=== PATIENT | female | born 1945 | race Caucasian/White ===

== ENCOUNTER → 2017-03-07 | Outpatient (CLI) | payer MEDICARE, BC ==
[~2017-03-07] MED LIST: ACETAMINOPHEN325 MG PO; ALBUTEROL17 GM INH; CLARITIN10 M2 PO; COLACE PO; HUMIBID DM1 TAB PO; HYDROCHLOROTHIA25 MG PO; HYDROCODON-ACE1 EAC9 PO; LASIX PO; LEVAQUIN PO; LISINOPRIL20 MG PO; LORTAB 10-3251 EACH PO; LORTAB 7.51 TAB DOB; OXYGEN; PREDNISONE PO; PROAIR HFA8.5 GM INH; SPIRIVA18 MCG INH; SYMBICORT 160/4.6 GM INH; SYMBICORT INH; TYLENOL325 M1 PO; VIBRAMYCIN100 M1 DOB; ZESTRIL40 MG PO
--- NOTE | ~2017-03-07 | CT4 ---
[facility] A Service of [facility] RADIOLOGY TEXT RESULTS PATIENT: MATEO BRENNER LOCATION: [facility] : 47 UNIT #: [id number] AGE: [address]: Ema Daugherty MD SEX: F ORDER DR: [id number] [facility] [address] [place], [place] [address] [id number] O MR#: [id number] Acc #: [id number] NAME: MATEO BRENNER : 1945 SEX: F STUDY DATE/TIME: 03/07/2017 15:05 UNIT: [facility] ROOM: STUDY DESCRIPTION: CT Abd and Pelv Wo Cont Attending Physician: Ema Daugherty M.D. Referring Physician: Ema Daugherty M.D. Ordering Physician: Ema Daugherty M.D. Primary Care Physician: Flakita John A.P.R.N. MEDICAL IMAGING REPORT This report is preliminary unless electronic signature is present EXAM CT abdomen and pelvis without contrast INDICATION Restaging lung cancer. Observation for metastatic disease. PROCEDURE Unenhanced CT of the abdomen and pelvis. COMPARISON 12/16/2016. TECHNIQUE This CT examination was performed with one or more of the following radiation dose reduction techniques: automatic exposure control, adjustment of mA and/or kV according to patient size, and iterative reconstruction. FINDINGS Refer to the separately dictated chest CT for thoracic findings. ABDOMEN WITHOUT CONTRAST: Liver, spleen, adrenal glands, pancreas, gallbladder have an unremarkable unenhanced appearance. Bilateral nonobstructing renal calculi measuring up to 4 mm in the right kidney. The bowel loops are nondilated. Moderate colonic stool. Uncomplicated colonic diverticula. Appendix is normal. PELVIS WITHOUT CONTRAST: No pelvic mass or fluid. No aggressive appearing bone lesion. IMPRESSION No evidence for metastatic disease in the abdomen or pelvis. [facility] A Service of [facility] RADIOLOGY TEXT RESULTS PATIENT: MATEO BRENNER LOCATION: [facility] : 47 UNIT #: [id number] AGE: [address]: Ema Daugherty MD SEX: F ORDER DR: Dictated by... Forest Busch M.D. THIS IS AN ELECTRONICALLY VERIFIED REPORT Forest Busch M.D. at 03/09/2017 7:19 AM MANDA/yasmani TD: 03/08/2017 08:13 JOB #: [id number] MEDICAL IMAGING REPORT Page 1 of 1 COPY
--- NOTE | ~2017-03-07 | MR17 ---
[facility] A Service of [facility] & [facility] RADIOLOGY TEXT RESULTS PATIENT: MATEO BRENNER LOCATION: [facility] : 47 UNIT #: [id number] AGE: [address]: Ema Daugherty MD SEX: F ORDER DR: [id number] [facility] [address] [place], [place] [address] [id number] O MR#: [id number] Acc #: [id number] NAME: MATEO BRENNER : 1945 SEX: F STUDY DATE/TIME: 03/07/2017 13:42 UNIT: [facility] ROOM: STUDY DESCRIPTION: MR Brain WWo Contrast Attending Physician: Ema Daugherty M.D. Referring Physician: Ema Daugherty M.D. Ordering Physician: Ema Daugherty M.D. Primary Care Physician: Flakita John A.P.R.N. MRI CENTER REPORT This report is preliminary unless electronic signature is present. EXAM MRI of the brain with without HISTORY Lung cancer. Observe for suspected intracranial metastatic disease. Follow-up. The patient has occasional headaches and has had lung and brain cancer per patient with chemotherapy in 2013 and radiation therapy in 2014, brain tumor removal in 2014. COMMENT MRI of the brain was performed prior to and following intravenous administration of 15 mL of MultiHance. COMPARISON Comparison study is from 12/16/2016. FINDINGS There is no abnormally restricted diffusion. Redemonstrated are postoperative changes left parietooccipital lobe with underlying encephalomalacia and apparent gliosis. White matter signal abnormality is stable subjacent to the craniotomy site and there is no pathologic enhancement. There is nothing to suggest local recurrence. There is no extraaxial fluid collection. The major intracranial flow voids are maintained. There is prominence of perivascular spaces and moderate white matter disease in general, nonspecific and probably due to small vessel disease. The focal white matter disease at the postoperative bed is likely post-therapeutic in etiology. Minor fluid or inflammatory change mastoid air cells. Minor mucosal thickening paranasal sinuses but no sinus air-fluid level. There is mild generalized atrophy. No recent intracranial hemorrhage is suspected. Postcontrast imaging shows no evidence for intracranial metastatic STS. [facility] A Service of [facility] & [facility] RADIOLOGY TEXT RESULTS PATIENT: MATEO BRENNER LOCATION: [facility] : 47 UNIT #: [id number] AGE: [address]: Ema Daugherty MD SEX: F ORDER DR: disease. Continued interval follow up is suggested. IMPRESSION 1. Stable postoperative/posttherapeutic appearance of the brain. Nothing to suggest tumor recurrence. No evidence for intracranial metastatic disease at this time. Continued interval follow up is recommended. 2. Otherwise, atrophy and probable sequelae of small vessel disease. Dictated by... Amanda Snowden M.D. THIS IS AN ELECTRONICALLY VERIFIED REPORT Amanda Snowden M.D. at 03/08/2017 6:20 PM PADMINI/landy TD: 03/08/2017 11:19 JOB #: [id number] MRI CENTER REPORT Page 1 of 1 COPY
--- NOTE | ~2017-03-07 | CT57 ---
[facility] A Service of [facility] RADIOLOGY TEXT RESULTS PATIENT: MATEO BRENNER LOCATION: [facility] : 47 UNIT #: [id number] AGE: [address]: Ema Daugherty MD SEX: F ORDER DR: [id number] [facility] [address] [place], [place] [address] [id number] O MR#: [id number] Acc #: [id number] NAME: MATEO BRENNER : 1945 SEX: F STUDY DATE/TIME: 03/07/2017 15:05 UNIT: [facility] ROOM: STUDY DESCRIPTION: CT Chest Wo Cont Attending Physician: Ema Daugherty M.D. Referring Physician: Ema Daugherty M.D. Ordering Physician: Ema Daugherty M.D. Primary Care Physician: Flakita John A.P.R.N. MEDICAL IMAGING REPORT This report is preliminary unless electronic signature is present EXAM CT chest without contrast INDICATIONS Lung cancer restaging. Observation for metastatic disease. PROCEDURE Unenhanced CT of the chest COMPARISON 12/16/2016 FINDINGS Emphysema. There is scarring in the right upper lobe that is stable. No new nodule. No adenopathy. Low-attenuation nodules in the right thyroid lobe are similar to the prior. No acute findings in the included upper abdomen. No aggressive appearing bone lesion. IMPRESSION 1. Stable scarring in the right upper lobe. Emphysema. 2. No new pulmonary nodule or convincing evidence for metastatic disease in the chest. Dictated by... Forest Busch M.D. THIS IS AN ELECTRONICALLY VERIFIED REPORT Forest Busch M.D. at 03/09/2017 7:19 AM EED/naina TD: 03/08/2017 08:05 [facility] A Service [facility] RADIOLOGY TEXT RESULTS PATIENT: MATEO BRENNER LOCATION: [facility] : 47 UNIT #: [id number] AGE: [address]: Ema Daugherty MD SEX: F ORDER DR: JOB #: [id number] MEDICAL IMAGING REPORT Page 1 of 1 COPY
[2017-03-07 13:50] LABS: POC - CREATININE 1.1 mg/dL (0.44-1.03)
== END | disposition home or self-care (01) ==
LOC: CMRI 13:16
PROVIDERS: Internal Medicine Hematology
DX: C34.90 Malignant neoplasm of unspecified part of unspecified bronchus or lung (principal); G31.9 Degenerative disease of nervous system, unspecified; J98.4 Other disorders of lung; J43.9 Emphysema, unspecified; Z98.890 Other specified postprocedural states
CPT/HCPCS: 70553; 71250; 74176; 82565; A9577

== ENCOUNTER → 2017-04-29 | Outpatient (CLI) | payer MEDICARE, BC ==
--- NOTE | ~2017-04-29 | CT55 ---
[facility] A Service of [facility] & [facility] RADIOLOGY TEXT RESULTS PATIENT: MATEO BRENNER [facility] : 47 UNIT #: [id number] AGE: [address]: Ema Daugherty MD SEX: F ORDER DR: [id number] [facility] [address] [place], [place] [address] [id number] O MR#: [id number] Acc #: [id number] NAME: MATEO BRENNER : 1945 SEX: F STUDY DATE/TIME: 04/29/2017 16:06 UNIT: [facility] ROOM: STUDY DESCRIPTION: CT Chest W Con Attending Physician: Ema Daugherty M.D. Referring Physician: Ema Daugherty M.D. Ordering Physician: Ema Daugherty M.D. Primary Care Physician: Flakita John A.P.R.N. MEDICAL IMAGING REPORT This report is preliminary unless electronic signature is present EXAM CT scan of the chest with contrast. INDICATION Follow up lung cancer. COMPARISON 03/07/17. TECHNIQUE Axial 5 mm images were obtained through the chest with IV contrast. The patient was given 100 mL of Isovue-370. This CT exam was performed with one or more of the following radiation dose reduction techniques: automatic exposure control, adjustment of mA and/or kV according to patient size, and iterative reconstruction. FINDINGS There is a low density nodule in the right thyroid lobe measuring 14 mm in diameter. This appears to have been present on the prior study and some of the thyroid tissue from the right lobe extends down into the right paratracheal region which is also stable. The aorta is normal in size and there is no dissection. There is no visualized pulmonary embolus. I believe there are postoperative changes in the right upper lobe, and there is no significant change in the right lung with minimal right base atelectasis, is new from the prior study. This is in the lateral basilar segment. This could also represent some minimal infiltrate. There is no adenopathy identified. IMPRESSION 1. There is some new density in the right base laterally measuring up to about 3 cm x 1 cm and the appearance suggests infiltrate or atelectasis. [facility] A Service of [facility] & [facility] RADIOLOGY TEXT RESULTS PATIENT: MATEO BRENNER LOCATION: [facility] : 47 UNIT #: [id number] AGE: [address]: Ema Daugherty MD SEX: F ORDER DR: 2. There is no evidence of metastatic disease or recurrent lung cancer. Dictated by... Darek Hudson M.D. THIS IS AN ELECTRONICALLY VERIFIED REPORT Darek Hudson M.D. at 05/01/2017 7:02 AM ALEX/sebastian TD: 04/30/2017 18:44 JOB #: [id number] MEDICAL IMAGING REPORT Page 1 of 1 COPY
--- NOTE | ~2017-04-29 | MR17 ---
[facility] A Service of [facility] RADIOLOGY TEXT RESULTS PATIENT: MATEO BRENNER LOCATION: [facility] : 47 UNIT #: [id number] AGE: [address]: Ema Daugherty MD SEX: F ORDER DR: [id number] [facility] [address] [place], [place] [address] [id number] O MR#: [id number] Acc #: [id number] NAME: MATEO BRENNER. : 1945 SEX: F STUDY DATE/TIME: 04/29/2017 14:50 UNIT: [facility] ROOM: STUDY DESCRIPTION: MR Brain WWo Contrast Attending Physician: Ema Daugherty M.D. Referring Physician: Ema Daugherty M.D. Ordering Physician: Ema Daugherty M.D. Primary Care Physician: Flakita John A.P.R.N. MRI CENTER REPORT This report is preliminary unless electronic signature is present. EXAM MRI brain with without HISTORY Lung cancer followup. Known metastatic disease to the brain. Right upper chest and head pain for [id number] weeks. History of prior brain surgery. History of chemo and radiation therapy 2013 and 2014 respectively. COMMENTS MRI of the brain was performed prior to and following intravenous administration of 15 mL of MultiHance. There is a comparison study from 03/07/2017. There is no abnormally restricted diffusion. There is a stable focus of encephalomalacia in the left parietooccipital lobe consistent with prior therapy. There is nothing at this time to suggest tumor recurrence. The major intracranial flow voids are maintained. There is no extraaxial fluid collection. There is confluent white matter signal abnormality at site of prior treated tumor. Otherwise there is moderate nonspecific white matter disease in general which is probably due to small vessel disease in age group. This is unchanged. Postcontrast imaging shows no pathologic intracranial enhancement. There is nothing to suggest intracranial metastatic disease. Continued interval followup is recommended. Mastoid air cells are clear. Partial opacification/mild mucosal thickening ethmoid air cells and a small amount of disease in the right frontal sinus but there is no sinus air-fluid level. Prominence of perivascular space is also noted. IMPRESSION 1. Stable postoperative and post-therapeutic appearance of the brain. Nothing at this time to suggest tumor recurrence. No evidence for intracranial metastatic disease. Continued interval follow up is STS. [facility] A Service of [facility] & [facility] RADIOLOGY TEXT RESULTS PATIENT: MATEO BRENNER LOCATION: [facility] : 47 UNIT #: [id number] AGE: [address]: Ema Daugherty MD SEX: F ORDER DR: recommended. 2. Probably sequela of small vessel disease. Dictated by... Amanda Snowden M.D. THIS IS AN ELECTRONICALLY VERIFIED REPORT Amanda Snowden M.D. at 05/03/2017 3:43 PM PADMINI/marcelo TD: 05/03/2017 12:37 JOB #: [id number] MRI CENTER REPORT Page 1 of 1 COPY
--- NOTE | ~2017-04-29 | CT2 ---
[facility] A Service of [facility] RADIOLOGY TEXT RESULTS PATIENT: MATEO BRENNER LOCATION: [facility] : 47 UNIT #: [id number] AGE: [address]: Ema Daugherty MD SEX: F ORDER DR: [id number] [facility] [address] [place], [place] [address] [id number] O MR#: [id number] Acc #: [id number] NAME: MATEO BRENNER : 1945 SEX: F STUDY DATE/TIME: 04/29/2017 15:40 UNIT: [facility] ROOM: STUDY DESCRIPTION: CT Abd and Pelv W Cont Attending Physician: Ema Daugherty M.D. Referring Physician: Ema Daugherty M.D. Ordering Physician: Ema Daugherty M.D. Primary Care Physician: Flakita John A.P.R.N. MEDICAL IMAGING REPORT This report is preliminary unless electronic signature is present EXAM CT abdomen and pelvis with contrast. INDICATION Lung cancer follow up. Patient has brain mets and right breast pain, low back pain, headache for 2 weeks. COMPARISON 03/07/17. TECHNIQUE The patient was given 100 mL Isovue-370 and axial 5 mm images were obtained through the abdomen and pelvis. This CT exam was performed with one or more of the following radiation dose reduction techniques: automatic exposure control, adjustment of mA and/or kV according to patient size, and iterative reconstruction. FINDINGS Lung base findings will be discussed with the chest CT. The liver, gallbladder, spleen, pancreas, adrenal glands, and kidneys are normal. The aorta is normal in size and there is no adenopathy. The bowel is normal. The uterus and adnexal regions and bladder are normal. The bones are unremarkable. IMPRESSION Negative CT abdomen and pelvis. No evidence of metastatic disease. Dictated by... Darek Hudson M.D. [facility] A Service of [facility] RADIOLOGY TEXT RESULTS PATIENT: MATEO BRENNER LOCATION: [facility] : 47 UNIT #: [id number] AGE: [address]: Ema Daugherty MD SEX: F ORDER DR: THIS IS AN ELECTRONICALLY VERIFIED REPORT Darek Hudson M.D. at 05/01/2017 7:02 AM ALEX/sebastian TD: 04/30/2017 18:26 JOB #: [id number] MEDICAL IMAGING REPORT Page 1 of 1 COPY
[2017-04-29 17:27] LABS: POC - CREATININE 0.91 mg/dL (0.44-1.03); POC - GFR >60.0 mL/min (>60)
== END | disposition home or self-care (01) ==
LOC: CMRI 14:00
PROVIDERS: Internal Medicine Hematology
DX: C34.90 Malignant neoplasm of unspecified part of unspecified bronchus or lung (principal); J98.4 Other disorders of lung
CPT/HCPCS: 70553; 71260; 74177; 82565; A9577; Q9967

== ENCOUNTER → 2017-05-17 | Outpatient (CLI) | payer MEDICARE, BC ==
--- NOTE | ~2017-05-17 | MY29 ---
[facility] A Service of [facility] RADIOLOGY TEXT RESULTS PATIENT: MATEO BRENNER LOCATION: [facility] #: [id number] : 47 UNIT #: [id number] AGE: [address]: Ema Daugherty MD SEX: F ORDER DR: [id number] [facility] [address] [place], [place] [address] [id number] O MR#: [id number] Acc #: [id number] NAME: MATEO BRENNER : 1945 SEX: F STUDY DATE/TIME: 05/17/2017 15:06 UNIT: [facility] ROOM: STUDY DESCRIPTION: MY THOMAS SCREENING W/ CAD BILAT Attending Physician: Ema Daugherty M.D. Ordering Physician: Ema Daugherty M.D. Primary Care Physician: Flakita John A.P.R.N. MEDICAL IMAGING REPORT This report is preliminary unless electronic signature is present EXAM Digital screening mammogram, 05/17/17; [facility]. HISTORY 71-year-old woman, no risk elevation. New baseline mammogram. COMPARISON None. Previous mammogram 20 years ago. FINDINGS Digital imaging of each breast was completed utilizing a two-view examination of each breast in craniocaudal and mediolateral-oblique projections. Review and interpretation of digital mammograms include a second review in conjunction with FDA-approved CAD device. There is a normal parenchymal presentation bilaterally consistent with the patient's age. There are no breast masses imaged and no parenchymal asymmetry is visualized. There are no suspicious microcalcifications and I see no focal architectural disturbance. IMPRESSION Negative screening digital mammogram. One-year followup recommended. Patients over the age of 40 are entered into a reminder system with target due date for the next mammogram. A result letter will also be sent to the patient. BIRADS: 1 Negative. Dictated by... Jimy Bernabe M.D. [facility] A Service of [facility] RADIOLOGY TEXT RESULTS PATIENT: MATEO BRENNER [facility] [id number] : 49 UNIT #: [id number] AGE: [address]: Ema Daugherty MD SEX: F ORDER DR: THIS IS AN ELECTRONICALLY VERIFIED REPORT Jimy Bernabe M.D. at 05/18/2017 9:39 AM KARINA/sebastian TD: 05/17/2017 19:28 JOB #: [id number] MEDICAL IMAGING REPORT Page 1 of 1 COPY
== END | disposition home or self-care (01) ==
LOC: CWCC 14:30
DX: Z12.31 Encounter for screening mammogram for malignant neoplasm of breast (principal); C34.90 Malignant neoplasm of unspecified part of unspecified bronchus or lung
CPT/HCPCS: G0202

== ENCOUNTER → 2017-08-02 | Outpatient (CLI) | payer MEDICARE, BC ==
--- NOTE | ~2017-08-02 | MR17 ---
[facility] A Service of [facility] RADIOLOGY TEXT RESULTS PATIENT: MATEO BRENNER [facility] UNIT #: [id number] AGE: [address]: Ema Daugherty MD SEX: F ORDER DR: [id number] [facility] [address] [place], [place] [address] [id number] O MR#: [id number] Acc #: [id number] NAME: MATEO BRENNER : 1945 SEX: F STUDY DATE/TIME: 08/02/2017 13:26 UNIT: [facility] ROOM: STUDY DESCRIPTION: MR Brain WWo Contrast Attending Physician: Ema Daugherty M.D. Ordering Physician: Ema Daugherty M.D. Primary Care Physician: Flakita John A.P.R.N. MRI CENTER REPORT This report is preliminary unless electronic signature is present. EXAM MRI of the brain with and without contrast, 08/02/2017 COMPARISON MRI brain with and without contrast dated 04/29/2017. HISTORY Followup MRI from 3 months ago. No new symptoms. History of lung cancer with metastasis to the brain. FINDINGS Multisequence multiplanar imaging of the brain was obtained with and without contrast. 15 mL of MultiHance was administered intravenously. GFR measured 50. Status post left parietooccipital craniotomy with underlying postoperative changes, stable when compared to the prior study. Increased T2 signal is noted in the left parietal lobe extending towards the occipital lobe. It is probably vasogenic edema which has not significantly changed. Nonenhancing few other scattered hyperintense T2-signal lesions are noted in the subcortical and periventricular white matter. No hydrocephalus, midline shift or new enhancing lesions. Mild bilateral mastoid and paranasal sinus mucosal thickening is noted with S-shaped nasal septal deviation. IMPRESSION 1. No significant interval change. Stable postoperative changes in the left parietal region. 2. No interval new enhancing mass. 3. Nonspecific nonenhancing increased T2 signal changes in the remaining brain are likely related to mild chronic microvascular ischemic change or migraine based on age and statistics. Stable. STS. [facility] A Service of [facility] & [facility] RADIOLOGY TEXT RESULTS PATIENT: MATEO BRENNER LOCATION: [facility] : 49 UNIT #: [id number] AGE: [address]: Ema Daugherty MD SEX: F ORDER DR: Dictated by... Jovany Peace M.D. THIS IS AN ELECTRONICALLY VERIFIED REPORT Jovany Peace M.D. at 08/04/2017 6:37 PM CPR/ljd TD: 08/03/2017 22:57 JOB #: [id number] MRI CENTER REPORT Page 1 of 1 COPY
[2017-08-02 18:06] LABS: POC - CREATININE 1.14 mg/dL (0.44-1.03)
== END | disposition home or self-care (01) ==
LOC: CCAT 13:00
PROVIDERS: Internal Medicine Hematology
DX: C34.90 Malignant neoplasm of unspecified part of unspecified bronchus or lung (principal); R93.0 Abnormal findings on diagnostic imaging of skull and head, not elsewhere classified; Z98.890 Other specified postprocedural states
CPT/HCPCS: 70553; 82565; A9577

== ENCOUNTER → 2017-08-03 | Outpatient (CLI) | payer MEDICARE, BC ==
--- NOTE | ~2017-08-03 | CT2 ---
[facility] A Service of [facility] & [facility] RADIOLOGY TEXT RESULTS PATIENT: MATEO BRENNER [facility] UNIT #: [id number] AGE: [address]: Ema Daugherty MD SEX: F ORDER DR: [id number] [facility] [address] [place] [address] [place], [place] [address] [id number] O MR#: [id number] Acc #: [id number] NAME: MATEO BRENNER : 1945 SEX: F STUDY DATE/TIME: 08/03/2017 13:23 UNIT: [facility] ROOM: STUDY DESCRIPTION: CT Abd and Pelv W Cont Attending Physician: Ema Daugherty M.D. Ordering Physician: Ema Daugherty M.D. MEDICAL IMAGING REPORT This report is preliminary unless electronic signature is present EXAM CT abdomen and pelvis with contrast DATE 08/03/2017 HISTORY 71-year-old female lung cancer follow up. No current complaints. History of lung cancer diagnosed in 2012 and brain cancer in 2014. COMPARISON CT abdomen and pelvis with contrast 04/29/2017. PROCEDURE 5 mm axial images from the lung bases through the lesser trochanters after intravenous contrast administration. Enteric contrast not administered. Sagittal and coronal reformatted images were obtained. This CT exam was performed with one or more of the following radiation dose reduction techniques: automatic control, adjustment of mA and/or kV according to patient size, and iterative reconstruction. FINDINGS ABDOMEN FINDINGS: Wedge-shaped 9 mm of enhancement extends along the subcapsular margin of the right hepatic lobe near the gallbladder fossa, unchanged from 04/29/2017 and unchanged from more remote study from 07/01/2015, in keeping with a benign finding such as small flash fill hemangioma or transient hepatic attenuation difference. The liver is mildly steatotic. The gallbladder, spleen, pancreas, adrenals and left kidney are normal. A 4 mm nonobstructing stone is seen within the right mid kidney. 1 cm cyst is seen within the anterior right mid kidney. Appendix is normal. Diverticular changes are seen within the colon without evidence of acute diverticulitis. No adenopathy or free STS. [facility] A Service of [facility] & [facility] RADIOLOGY TEXT RESULTS PATIENT: MATEO BRENNER [facility] UNIT #: [id number] AGE: [address]: Ema Daugherty MD SEX: F ORDER DR: fluid is identified. PELVIS FINDINGS: Tiny probable uterine fibroid unchanged. Urinary bladder and rectum are normal. No pelvic adenopathy or free fluid. No suspicious osteolytic or osteoblastic lesion. Emphysematous changes are present in the lung bases. 3.2 cm fusiform aneurysm of the distal descending thoracic aorta. IMPRESSION 1. No evidence of metastatic disease in the abdomen or pelvis in this patient with a history of lung cancer. 2. Hepatic steatosis. Subcentimeter subcapsular enhancement in the right hepatic lobe is unchanged from 2015, in keeping with a benign finding such as a transient hepatic attenuation difference or flash fill hemangioma. No suspicious liver lesions. 3. Hepatic steatosis. 4. Nonobstructing right renal stone and right renal cyst. 5. Uncomplicated colonic diverticulosis. 6. 3.2 cm distal descending thoracic aortic aneurysm. 7. Emphysema. Dictated by... Lizbeth Harrington M.D. THIS IS AN ELECTRONICALLY VERIFIED REPORT Lizbeth Harrington M.D. at 08/05/2017 8:42 AM ROGER/ry TD: 08/04/2017 17:35 JOB #: [id number] MEDICAL IMAGING REPORT Page 1 of 1 COPY
--- NOTE | ~2017-08-03 | CT55 ---
[facility] A Service of [facility] RADIOLOGY TEXT RESULTS PATIENT: MATEO BRENNER LOCATION: [facility] : 49 UNIT #: [id number] AGE: [address]: Ema Daugherty MD SEX: F ORDER DR: [id number] [facility] [address] [place], [place] [address] [id number] O MR#: [id number] #: [id number] NAME: MATEO BRENNER : 1945 SEX: F STUDY DATE/TIME: 08/03/2017 13:23 UNIT: [facility] ROOM: STUDY DESCRIPTION: CT Chest W Con Attending Physician: Ema Daugherty M.D. Ordering Physician: Ema Daugherty M.D. MEDICAL IMAGING REPORT This report is preliminary unless electronic signature is present EXAM CT chest with contrast DATE 08/03/2017 HISTORY Lung cancer diagnosed in 2012 with brain metastases in 2014. Observation metastatic disease. Restaging. No current complaints. COMPARISON CT chest with contrast 04/29/2017. PROCEDURE 5 mm axial images through the chest after intravenous contrast administration. Sagittal and coronal reformatted images were obtained. This CT exam was performed with one or more of the following radiation dose reduction techniques: Automatic exposure control, adjustment of mA and/or kV according to patient size, and iterative reconstruction. FINDINGS Extensive peripheral airspace disease changes seen within the right lower lobe and right middle lobe on the previous study have resolved. No new airspace disease is seen. There is chronic-appearing scarring within the right upper lobe with volume loss and traction bronchiectasis. Severe emphysema. No focal suspicious pulmonary nodule. No pathologically enlarged lymph nodes are identified. Asymmetric nodular enlargement of the right thyroid lobe extending into the superior mediastinum, unchanged from previous exam. No pathologically enlarged mediastinal, hilar, axillary or supraclavicular nodes are seen. Ectasia of the ascending aorta 3.7 cm and descending aorta 2.9 cm in the mid segments. 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 No dissection. [facility] A Service of [facility] RADIOLOGY TEXT RESULTS PATIENT: MATEO BRENNER LOCATION: [facility] : 49 UNIT #: [id number] AGE: [address]: Ema Daugherty MD SEX: F ORDER DR: No suspicious osteolytic or osteoblastic lesions are identified. IMPRESSION 1. No convincing evidence of recurrent or metastatic disease in the chest in this patient with history of lung cancer. 2. Scarring and volume loss in the right upper lobe, presumably related to previous surgical intervention. 3. Advanced emphysema. 4. Previously described peripheral right basilar airspace disease on 04/29/2017 has resolved. No acute chest findings. 5. Stable asymmetric enlargement of the right thyroid lobe extending into the superior mediastinum. 6. Stable mild aneurysmal dilation of the distal descending thoracic aorta, 3.[address] abdomen and pelvis performed on this same date has been dictated separately. Dictated by... Lizbeth Harrington M.D. THIS IS AN ELECTRONICALLY VERIFIED REPORT Lizbeth Harrington M.D. at 08/05/2017 8:42 AM ROGER/chema TD: 08/04/2017 17:45 JOB #: [id number] MEDICAL IMAGING REPORT Page 1 of 1 COPY
[2017-08-03 14:25] LABS: POC - CREATININE 0.94 mg/dL (0.44-1.03); POC - GFR >60.0 mL/min (>60)
== END | disposition home or self-care (01) ==
LOC: CCAT 11:22
PROVIDERS: Internal Medicine Hematology
DX: Z08 Encounter for follow-up examination after completed treatment for malignant neoplasm (principal); J43.9 Emphysema, unspecified; E04.9 Nontoxic goiter, unspecified; J98.4 Other disorders of lung; K76.0 Fatty (change of) liver, not elsewhere classified; N20.0 Calculus of kidney; K57.30 Diverticulosis of large intestine without perforation or abscess without bleeding; I71.2 Thoracic aortic aneurysm, without rupture; N28.1 Cyst of kidney, acquired; Z85.118 Personal history of other malignant neoplasm of bronchus and lung; Z85.841 Personal history of malignant neoplasm of brain
CPT/HCPCS: 71260; 74177; 82565; Q9967